=== PATIENT | female | born 1960 | race Caucasian/White ===

== ENCOUNTER 2019-06-13 14:46 | Emergency (ER) | payer BC ==
[2019-06-13 15:00] VITALS: BP 121/56; PULSE 106; TEMP 99.4; BMI 28.3
[2019-06-13] MEDS ORDERED: FAMOTIDINE 20 MG TABLET PO ONE (15:05)
[2019-06-13] MEDS ORDERED: DEXAMETHASONE SOD PHOSPHATE 10 MG/1 ML VIAL IM ONE (15:05)
[2019-06-13] MEDS ORDERED: DEXAMETHASONE SOD PHOSPHATE 10 MG/1 ML VIAL ONE (15:12)
[2019-06-13] MEDS ORDERED: FAMOTIDINE 20 MG TABLET ONE (15:12)
== END 2019-06-13 16:33 | disposition home or self-care (01) ==
LOC: JERFT 14:46
PROC: 3E023GC Introduction of Other Therapeutic Substance into Muscle, Percutaneous Approach (ICD-10-PCS; principal; 2019-06-13)
DX: T78.40XA Allergy, unspecified, initial encounter (principal)
CPT/HCPCS: 99284-25; J1100